=== PATIENT | male | born 1985 | race Caucasian/White ===

== ENCOUNTER → 2016-11-06 | Outpatient (CLI) | payer OTHER | LOC: BMCIMAGING 18:18 | PROVIDERS: ATTEND Family Medicine | DX: S82.62XA Displaced fracture of lateral malleolus of left fibula, initial encounter for closed fracture (principal) ==

== ENCOUNTER 2017-08-02 17:43 | Emergency (ER) | payer OTHER ==
[2017-08-02] MEDS ORDERED: TDAP ADULT 0.5 ML INJ (BOOSTRIX) IM ONE (17:48)
[2017-08-02 17:55] VITALS: RESP 16; TEMP 98.1
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
[2017-08-02] MEDS ORDERED: CYCLOBENZAPRINE 10 MG TAB PO ONE (19:04)
[2017-08-02 19:22] VITALS: BP 146/76; PULSE 71; O2SAT 94
== END 2017-08-02 19:20 | disposition home or self-care (01) ==
LOC: EDUNIT#
DX: S70.01XA Contusion of right hip, initial encounter (principal); S70.02XA Contusion of left hip, initial encounter; S70.312A Abrasion, left thigh, initial encounter; S50.311A Abrasion of right elbow, initial encounter; S80.811A Abrasion, right lower leg, initial encounter; Z23 Encounter for immunization; V11.4XXA Pedal cycle driver injured in collision with other pedal cycle in traffic accident, initial encounter; Y92.410 Unspecified street and highway as the place of occurrence of the external cause; Y99.8 Other external cause status; Y93.55 Activity, bike riding